=== PATIENT | male | born 1960 | race Caucasian/White ===

== ENCOUNTER 2019-07-28 14:00 | Day surgery (SDC) | payer OTHER ==
[~2019-07-28] VITALS: Ht 167.6 cm; Wt 81.6 kg
[2019-07-28] VITALS (13 sets, daily range): BP systolic 129–149; BP diastolic 74–83; PULSE 60–82; RESP 10–26; Ht 167.6 cm; Wt 81.6 kg
[~2019-07-28 14:00] MED LIST: IBUP800T48 PO
[2019-07-28] MEDS ORDERED: LACTATED RINGER'S 1,000 ML IV SCH (15:30)
[2019-07-28] MEDS ORDERED: DESFLURANE 15 MIN ONE (16:52)
[2019-07-28] MEDS ORDERED: ONDANSETRON 4 MG INJ ONE (16:52)
[2019-07-28] MEDS ORDERED: FENTAnyl 50 MCG/ML VIAL ONE (16:55)
[2019-07-28] MEDS ORDERED: MIDAZOLAM 1 MG/ML 2 ML INJ ONE (16:55)
[2019-07-28] MEDS ORDERED: PROPOFOL 20 ML ONE (16:55)
[2019-07-28] MEDS ORDERED: ROCURONIUM 50 MG INJ ONE (16:55)
[2019-07-28] MEDS ORDERED: LIDOCAINE 2% (SDV) 5 ML INJ ONE (16:55)
[2019-07-28] MEDS ORDERED: HYDROmorphONE 1 MG/5 ML IV SYRINGE IV PRN ×3 (17:00)
[2019-07-28] MEDS ORDERED: CEFAZOLIN 1 GM INJ ONE (17:03)
[2019-07-28] MEDS ORDERED: BUPIVACAINE 0.5% (SDV) 30 ML INJ ONE (17:05)
[2019-07-28] MEDS ORDERED: POLYMYXIN/BACITRACIN 1L IRRIG IRR ONE (17:16)
[2019-07-28] MEDS ORDERED: PHENYLephrine (100 MCG/ML) 10ML SYG ONE (17:20)
[2019-07-28] MEDS ORDERED: EPHEDrine 25 MG/5 ML SYG ONE (17:20)
[2019-07-28] MEDS ORDERED: FENTAnyl 50 MCG/ML VIAL IV PRN ×3 (19:00)
[2019-07-28] MEDS ORDERED: LABETALOL HCL 20MG INJ IV PRN (19:00)
[2019-07-28] MEDS ORDERED: OXYCODONE/ACETAMINOPHEN (5/325) TAB PO PRN ×2 (19:00)
[2019-07-28] MEDS ORDERED: ONDANSETRON 4 MG INJ IV PRN (19:00)
[2019-07-28] MEDS ORDERED: hydrALAzine 20 MG INJ IV PRN (19:00)
== END 2019-07-28 20:00 | disposition home or self-care (01) ==
LOC: SDS 14:00
PROVIDERS: ATTEND Orthopaedic Surgery Hand Surgery
DX: S66.321A Laceration of extensor muscle, fascia and tendon of left index finger at wrist and hand level, initial encounter (principal); X58.XXXA Exposure to other specified factors, initial encounter
CPT/HCPCS: 26412; 26420; J0690; J1170; J2250; J2370; J2405; J3010